=== PATIENT | female | born 1975 ===

== ENCOUNTER 2018-06-22 17:21 | Emergency (ER) | payer OTHER, SELFPAY ==
[2018-06-22] MEDS ORDERED: Iohexol 240 (50 ml) PO ONE (18:22)
--- NOTE | 2018-06-22 18:52 | ED PDOC ---
HPI: Abdomen Time Seen by Provider: 06/22/18 17:35 Chief Complaint (Nursing): Abdominal Pain Chief Complaint (Provider): Abdominal Pain History Per: Patient History/Exam Limitations: no limitations Onset/Duration Of Symptoms: Days (x21) Current Symptoms Are (Timing): Still Present Additional Complaint(s): 42 y/o with no significant PMHx presents to the ED complaining of increased abdominal distention and pain, onset three weeks ago. Patient also reports of constipation yesterday. Patient states she "feels like a baby is moving inside" but is not . Denies fever, vomiting and urinary symptoms. PMD: None Provided Past Medical History Reviewed: Historical Data, Nursing Documentation, Vital Signs Vital Signs: Last Vital Signs Temp 97.6 F 06/22/18 22:11 Pulse 78 06/22/18 22:11 Resp 20 06/22/18 22:11 BP 122/76 06/22/18 22:11 Pulse Ox 99 06/23/18 03:41 - Medical History PMH: No Chronic Diseases - Surgical History Surgical History: No Surg Hx - Family History Family History: States: Other Other Family History: Gallbladder Problems - Social History Current smoker - smoking cessation education provided: No Alcohol: None Drugs: Denies - Home Medications Home Medications: Ambulatory Orders Medication Instructions Recorded Polyethylene Glycol 3350 [Miralax] 17 g PO QAM PRN #7 pkg 06/22/18 - Allergies Allergies/Adverse Reactions: Allergies Allergy/AdvReac Type Severity Reaction Status Date / Time No Known Allergies Allergy Verified 06/22/18 17:28 Review of Systems ROS Statement: Except As Marked, All Systems Reviewed And Found Negative Constitutional: Negative for: Fever Gastrointestinal: Positive for: Abdominal Pain (and increased distention). Negative for: Vomiting Genitourinary Female: Negative for: Dysuria, Frequency, Hematuria Physical Exam - Reviewed Nursing Documentation Reviewed: Yes Vital Signs Reviewed: Yes - Physical Exam Appears: Positive for: No Acute Distress Head Exam: Positive for: ATRAUMATIC, NORMOCEPHALIC Skin: Positive for: Normal Color, Warm, Dry Eye Exam: Positive for: Normal appearance, EOMI, PERRL ENT: Positive for: Normal ENT Inspection Neck: Positive for: Normal, Painless ROM Cardiovascular/Chest: Positive for: Regular Rate, Rhythm. Negative for: Murmur Respiratory: Positive for: Normal Breath Sounds. Negative for: Respiratory Distress Gastrointestinal/Abdominal: Positive for: Normal Exam, Soft, Distended (Tympanic ) Back: Positive for: Normal Inspection Extremity: Positive for: Normal ROM. Negative for: Deformity Neurologic/Psych: Positive for: Alert, Oriented (x3). Negative for: Motor/ Sensory Deficits - Laboratory Results Result Diagrams: 06/22/18 18:50 06/22/18 18:50 - ECG O2 Sat by Pulse Oximetry: 99 (RA) Pulse Ox Interpretation: Normal Medical Decision Making Medical Decision Making: Time: 1838 Impression: Abdominal Pain Rule out: Infection, inflammation, appendicitis, diverticulitis, small bowel obstruction and fecal impaction Plan: -- CT Abd/Pelvis PO & IV Contrast -- CMP -- Lipase -- CBC with differentials -- Iohexol 50 ml PO -- Toradol 30 mg IV -- Urine C&S -- Urinalysis Time: 2099 -- Patient endorsed to Dr. Mccall, pending CT, labs and urine. Scribe Attestation: Documented by Narendra Alonzo acting as a scribe for Dr. Dulce Antony MD Provider Scribe Attestation: All medical record entries made by the Scribe were at my direction and personally dictated by me. I have reviewed the chart and agree that the record accurately reflects my personal performance of the history, physical exam, medical decision making, and the department course for this patient. I have also personally directed, reviewed, and agree with the discharge instructions and disposition. Disposition - Clinical Impression Clinical Impression: Abdominal pain, Constipation - Patient ED Disposition Is Patient to be Admitted: Transfer of Care - Disposition Referrals: [facility] [Outside] Disposition: Transfer of Care Disposition Time: 19:00 Condition: FAIR Prescriptions: Polyethylene Glycol 3350 [Miralax] 17 g PO QAM PRN #7 pkg PRN Reason: Constipation Instructions: Constipation, Adult (DC) Forms: [employer] (Ivorian) Patient Signed Over To: Brian Mccall
[2018-06-22] MEDS ORDERED: Iohexol 240 (50 ml) ONE (18:57)
[2018-06-22 19:00] LABS: BASO # 0.1 K/uL (0.0-0.2); BASO % 0.7 % (0.0-2.0); EOS # 0.1 K/uL (0.0-0.7); EOS % 1.2 % (0.0-4.0); HEMOGLOBIN 12.3 g/dL (12.0-16.0); LYMPH % 20.2 % (20.0-40.0); MEAN CELL VOLUME 90.4 fl (81.0-99.0); MEAN CORPUSCULAR HEMOGLOBIN 29.9 pg (27.0-31.0); MEAN CORPUSCULAR HGB CONC 33.1 g/dL (33.0-37.0); MEAN PLATELET VOLUME 8.3 fl (7.2-11.7); MONO # 0.7 K/uL (0.0-0.8); MONO % 6.9 % (0.0-10.0); NEUT # 7.1 K/uL (1.8-7.0); RBC 4.1 Mil/uL (3.80-5.20); RED CELL DISTRIBUTION WIDTH 13.4 % (11.5-14.5)
[2018-06-22 19:11] LABS: ALB/GLOB RATIO 1.3 (1.0-2.1); ALBUMIN 4.2 g/dL (3.5-5.0); ALT/SGPT 41 U/L (9-52); AST/SGOT 29 U/L (14-36); BLOOD UREA NITROGEN 10 mg/dl (7-17); CALCIUM 10.3 mg/dL (8.4-10.2); GFR NON-AFRICAN AMERICAN > 60; LIPASE 30 U/L (23-300)
[2018-06-22 19:22] LABS: SQUAMOUS EPITHIAL 2 /hpf (0-5); URINE BACTERIA RARE (<OCC); URINE BILIRUBIN NEGATIVE (NEGATIVE); URINE BLOOD NEGATIVE (NEGATIVE); URINE CLARITY CLEAR (Clear); URINE COLOR STRAW (YELLOW); URINE GLUCOSE (UA) NEG (Normal); URINE LEUKOCYTE ESTERASE TRACE Leu/uL (Negative); URINE PROTEIN NEGATIVE (NEGATIVE); URINE UROBILINOGEN 0.2-1.0 mg/dL (0.2-1.0)
--- NOTE | 2018-06-22 19:29 | ED PDOC ---
- Laboratory Results Result Diagrams: 06/22/18 18:50 06/22/18 18:50 - ECG O2 Sat by Pulse Oximetry: 99 (RA) Pulse Ox Interpretation: Normal Medical Decision Making Medical Decision Making: Time: 1899 -- Patient endorsed to me by Dr. Antony, pending CT, labs and urine. Time: 2129 CT ABD/PELVIS RESULTS FINDINGS: Lower thorax: No acute findings. ABDOMEN: Liver: Normal. No mass. Gallbladder and bile ducts: Normal. No calcified stones. No ductal dilation. Pancreas: Normal. No ductal dilation. Spleen: Normal. No splenomegaly. Adrenals: Normal. No mass. Kidneys and ureters: Cortical volume loss in both kidneys more prominent in the right kidney in the upper pole. Stomach and bowel: Diverticulosis of the colon without diverticulitis. Mild/ moderate fecal retention. Appendix: No evidence of appendicitis. PELVIS: Bladder: Unremarkable as visualized. Reproductive: Unremarkable as visualized. ABDOMEN and PELVIS: Intraperitoneal space: Normal. No free air. No significant fluid collection. Bones/joints: Degenerative change in the lower lumbar spine. Soft tissues: Unremarkable. Vasculature: Vascular calcifications. Lymph nodes: Normal. No enlarged lymph nodes. IMPRESSION: Diverticulosis. No diverticulitis. [id number] fecal retention Thank you for allowing us to participate in the care of your patient. Dictated and Authenticated by: Hiren Barone MD 06/22/2018 9:30 PM Eastern Time ([place] & [place]) Time: 2206 -- Patient reports an improvement in symptoms and is now stable for discharge with a diagnosis of abdominal pain and constipation. Patient given a prescription of Miralax. Scribe Attestation: Documented by Narendra Alonzo acting as a scribe for Dr. Brian Mccall MD Provider Scribe Attestation: All medical record entries made by the Scribe were at my direction and personally dictated by me. I have reviewed the chart and agree that the record accurately reflects my personal performance of the history, physical exam, medical decision making, and the department course for this patient. I have also personally directed, reviewed, and agree with the discharge instructions and disposition. Disposition - Clinical Impression Clinical Impression: Abdominal pain, Constipation - POA Present On Arrival: None - Disposition Referrals: [facility] [Outside] Disposition: Routine/Home Disposition Time: 22:07 Condition: FAIR Prescriptions: Polyethylene Glycol 3350 [Miralax] 17 g PO QAM PRN #7 pkg PRN Reason: Constipation Instructions: Constipation, Adult (DC) Forms: [address] (Lao)
[2018-06-22] MEDS ORDERED: Sodium Chloride 0.9% 50 ML IV ONE (20:19)
[2018-06-22] MEDS ORDERED: Iohexol 300 100 ML IJ ONE (20:19)
[2018-06-22 22:01] VITALS: TEMP 97.6
[2018-06-22 22:12] VITALS: BP 122/76; PULSE 78; RESP 20
[2018-06-23 03:41] VITALS: O2SAT 99
--- NOTE | 2018-06-23 10:06 | CT ---
Date of service: 06/22/2018 PROCEDURE: CT Abdomen and Pelvis with contrast HISTORY: abd pain COMPARISON: Abdomen ultrasound 07/03/2009. TECHNIQUE: Following oral and intravenous contrast administration, a CT examination of the abdomen and pelvis performed from the domes of the diaphragms to the symphysis pubis with reformatted datasets provided not only axial but also sagittal and coronal series. Contrast dose: Omnipaque 300, 95 cc Radiation dose: Total exam DLP = 736.72 mGy-cm. This CT exam was performed using one or more of the following dose reduction techniques: Automated exposure control, adjustment of the mA and/or kV according to patient size, and/or use of iterative reconstruction technique. FINDINGS: LOWER THORAX: Unremarkable. LIVER: Unremarkable. No gross lesion or ductal dilatation. GALLBLADDER AND BILE DUCTS: Unremarkable. PANCREAS: Unremarkable. No gross lesion or ductal dilatation. SPLEEN: Unremarkable. ADRENALS: Unremarkable. No mass. KIDNEYS AND URETERS: Small bilateral cortical renal defects are appreciated at the right greater than left kidney suggestive of probable chronic infarcts. Bilateral kidneys otherwise unremarkable bilaterally. VASCULATURE: Unremarkable. No aortic aneurysm. BOWEL: Unremarkable. No obstruction. No gross mural thickening. APPENDIX: Normal appendix. PERITONEUM: Unremarkable. No free fluid. No free air. LYMPH NODES: Unremarkable. No enlarged lymph nodes. BLADDER: Unremarkable. REPRODUCTIVE: Unremarkable. BONES: No acute fracture. OTHER FINDINGS: None. IMPRESSION: 1. No acute abdominal or pelvic findings. 2. Limited bilateral renal cortical infarcts suggested. No obstructive uropathy bilaterally, discrete renal parenchymal mass or urolithiasis. Concordant preliminary report from [facility], 06/22/2018.
== END 2018-06-22 22:19 | disposition home or self-care (01) ==
LOC: H.ER 17:21
DX: K59.00 Constipation, unspecified (principal); R10.9 Unspecified abdominal pain
CPT/HCPCS: 74177; 80053; 81003; 81025; 83690; 85025; 87086; 99284; J1885; Q9966; Q9967

== ENCOUNTER 2019-03-29 10:09 | Emergency (ER) | payer OTHER ==
[2019-03-29 10:28] VITALS: BP 127/76; PULSE 78; RESP 20; TEMP 98.3; O2SAT 99; BMI 31.1
--- NOTE | 2019-03-29 13:11 | ED PDOC ---
HPI: Female Pain Time Seen by Provider: 03/29/19 10:48 Chief Complaint (Nursing): Female Genitourinary Chief Complaint (Provider): Suprapubic fullness, urinary urgency History Per: Patient History/Exam Limitations: no limitations Onset/Duration Of Symptoms: Days Current Symptoms Are (Timing): Still Present Additional Complaint(s): 43 yo female wiht no medical problems presents for evaluation of suprapubic fullness and urinary urgency. PT states this has been going on for 3 days. No simialr in the past. No fever/chills. PT took pyridium which improved symptoms. PT denies back pain. PT eating and drinking normally without N/V. Past Medical History Reviewed: Historical Data, Nursing Documentation, Vital Signs Vital Signs: Last Vital Signs Temp 98.3 F 03/29/19 10:28 Pulse 78 03/29/19 10:28 Resp 20 03/29/19 10:28 BP 127/76 03/29/19 10:28 Pulse Ox 99 03/29/19 10:28 Primary Care Provider: FAMILY PROVIDER,NO - Medical History PMH: No Chronic Diseases - Surgical History Surgical History: No Surg Hx - Family History Family History: States: No Known Family Hx - Living Arrangements Living Arrangements: With Family - Social History Current smoker - smoking cessation education provided: No Alcohol: None Drugs: Denies - Home Medications Home Medications: Ambulatory Orders Medication Instructions Recorded Polyethylene Glycol 3350 [Miralax] 17 g PO QAM PRN #7 pkg 06/22/18 Ciprofloxacin [Cipro] 500 mg PO BID #10 tab 03/29/19 - Allergies Allergies/Adverse Reactions: Allergies Allergy/AdvReac Type Severity Reaction Status Date / Time No Known Allergies Allergy Verified 03/29/19 11:28 Review of Systems ROS Statement: Except As Marked, All Systems Reviewed And Found Negative Constitutional: Negative for: Fever, Chills Gastrointestinal: Positive for: Abdominal Pain, Other (Negative CVA tenderness). Negative for: Nausea, Vomiting, Constipation Genitourinary Female: Positive for: Frequency. Negative for: Dysuria, Hematuria, Vaginal Discharge, Vaginal Bleeding Physical Exam - Reviewed Nursing Documentation Reviewed: Yes Vital Signs Reviewed: Yes - Physical Exam Appears: Positive for: Well, Non-toxic, No Acute Distress Head Exam: Positive for: ATRAUMATIC, NORMAL INSPECTION, NORMOCEPHALIC Skin: Positive for: Normal Color, Warm, DRY Eye Exam: Positive for: Normal appearance ENT: Positive for: Normal ENT Inspection Neck: Positive for: Normal, Painless ROM Cardiovascular/Chest: Positive for: Regular Rate, Rhythm Respiratory: Positive for: Normal Breath Sounds. Negative for: Accessory Muscle Use, Respiratory Distress Gastrointestinal/Abdominal: Positive for: Normal Exam, Soft. Negative for: Tenderness, Distended, Guarding Back: Positive for: Normal Inspection. Negative for: L CVA Tenderness, R CVA Tenderness, Vertebral Tenderness Extremity: Positive for: Normal ROM Neurological/Psych: Positive for: Awake, Alert, Normal Tone - ECG O2 Sat by Pulse Oximetry: 99 Pulse Ox Interpretation: Normal Medical Decision Making Medical Decision Making: (+) leuks in urine. Urine culture sent. Disposition - Clinical Impression Clinical Impression: Urinary tract infection - Patient ED Disposition Is Patient to be Admitted: No Counseled Patient/Family Regarding: Diagnosis, Need For Followup, Rx Given - Disposition Disposition: Routine/Home Disposition Time: 12:57 Condition: STABLE Prescriptions: Ciprofloxacin [Cipro] 500 mg PO BID #10 tab Instructions: Urinary Tract Infections in Adults Print Language: VATICAN CITIZEN
== END 2019-03-29 12:58 | disposition home or self-care (01) ==
LOC: H.ER 10:09
DX: N39.0 Urinary tract infection, site not specified (principal)

== ENCOUNTER 2019-04-05 08:49 | Emergency (ER) | payer OTHER ==
[2019-04-05 09:29] VITALS: BMI 32.3
[2019-04-05 09:30] VITALS: TEMP 98.6; O2SAT 98
--- NOTE | 2019-04-05 10:34 | ED PDOC ---
HPI: Abdomen Time Seen by Provider: 04/05/19 09:34 Chief Complaint (Nursing): Female Genitourinary Chief Complaint (Provider): Female Genitourinary History Per: Patient History/Exam Limitations: no limitations Onset/Duration Of Symptoms: Persistent (x2 weeks), Worse Since (last night) Current Symptoms Are (Timing): Still Present Additional Complaint(s): 43 year old female presents to the emergency department with a complaint of suprapubic pain that radiates to pelvis associated with dysuria and urine frequency for the past two weeks. Patient was seen in ED on 03/29/19 for UTI then recently completed prescription for Cipro, however, symptoms returned last night. Otherwise, she denies any chest pain, shortness of breath, nausea, vomiting, diarrhea, vaginal pain or discharge. Past Medical History Reviewed: Historical Data, Nursing Documentation, Vital Signs Vital Signs: Last Vital Signs Temp 98.6 F 04/05/19 09:29 Pulse 71 04/05/19 09:29 Resp 16 04/05/19 09:29 BP 104/68 04/05/19 09:29 Pulse Ox 98 04/05/19 09:29 Primary Care Provider: Non [facility] Provider, - Medical History PMH: No Chronic Diseases - Surgical History Surgical History: No Surg Hx - Family History Family History: States: Unknown Family Hx - Home Medications Home Medications: Ambulatory Orders Medication Instructions Recorded Polyethylene Glycol 3350 [Miralax] 17 g PO QAM PRN #7 pkg 06/22/18 Ciprofloxacin [Cipro] 500 mg PO BID #10 tab 03/29/19 Nitrofurantoin Macrocrystals 100 mg PO BID #10 cap 04/05/19 [Macrobid] Phenazopyridine HCl [Pyridium] 100 mg PO BID PRN 5 Days tab 04/05/19 - Allergies Allergies/Adverse Reactions: Allergies Allergy/AdvReac Type Severity Reaction Status Date / Time No Known Allergies Allergy Verified 03/29/19 11:28 Review of Systems ROS Statement: Except As Marked, All Systems Reviewed And Found Negative Cardiovascular: Negative for: Chest Pain Respiratory: Negative for: Shortness of Breath Gastrointestinal: Positive for: Abdominal Pain (lower). Negative for: Nausea, Vomiting, Diarrhea Genitourinary Female: Positive for: Dysuria, Frequency, Pelvic Pain. Negative for: Vaginal Discharge, Vaginal Bleeding Physical Exam - Reviewed Nursing Documentation Reviewed: Yes Vital Signs Reviewed: Yes - Physical Exam Appears: Positive for: Non-toxic, No Acute Distress Head Exam: Positive for: ATRAUMATIC, NORMAL INSPECTION, NORMOCEPHALIC Skin: Positive for: Normal Color Eye Exam: Positive for: Normal appearance ENT: Positive for: Normal ENT Inspection Neck: Positive for: Normal Cardiovascular/Chest: Positive for: Regular Rate, Rhythm Respiratory: Positive for: Normal Breath Sounds. Negative for: Respiratory Distress Gastrointestinal/Abdominal: Positive for: Soft, Tenderness (suprapubic). Negative for: Other (epigastric, periumbilical, left or right tenderness) Back: Positive for: Normal Inspection. Negative for: L CVA Tenderness, R CVA Tenderness, Decreased ROM Extremity: Positive for: Normal ROM (upper/lower). Negative for: Pedal Edema, Calf Tenderness Neurological/Psych: Positive for: Awake, Alert, Normal Tone, Symmetric/Intact Strength (5/5), Oriented. Negative for: Motor/Sensory Deficits - ECG O2 Sat by Pulse Oximetry: 98 (RA) Pulse Ox Interpretation: Normal - Progress ED Course And Treament: 1101: Stable. AAOx3. Pain controlled. FU with pcp. Will tx with macrobid. Medical Decision Making Medical Decision Making: Time: 0955 Initial Plan: * Urine dipstick//culture * Motrin PO * Pyridium PO Time: 1005 --Review of chart from 03/29/19: urine culture with (-) growth. trace leukocytes in UA. Time: 1021 --UA: (+) trace leukocytes. Scribe Attestation: Documented by Tanika Ramirez, acting as a scribe for Jos Blackman MD. Provider Scribe Attestation: All medical record entries made by the Scribe were at my direction and personally dictated by me. I have reviewed the chart and agree that the record accurately reflects my personal performance of the history, physical exam, medical decision making, and the department course for this patient. I have also personally directed, reviewed, and agree with the discharge instructions and disposition. Disposition - Clinical Impression Clinical Impression: Urinary tract infection - Patient ED Disposition Is Patient to be Admitted: No Counseled Patient/Family Regarding: Studies Performed, Diagnosis, Need For Followup, Rx Given - Disposition Referrals: [facility] [Outside] - 04/06/19 Disposition: Routine/Home Disposition Time: 11:16 Condition: STABLE Additional Instructions: Return if not better in 3 days. Prescriptions: Nitrofurantoin Macrocrystals [Macrobid] 100 mg PO BID #10 cap Phenazopyridine HCl [Pyridium] 100 mg PO BID PRN 5 Days tab PRN Reason: Bladder Spasm Instructions: Urinary Tract Infections in Adults Forms: [employer] (Greenlandic) Print Language: YORUBA
[2019-04-05 11:51] VITALS: BP 110/70; PULSE 73; RESP 18
== END 2019-04-05 11:50 | disposition home or self-care (01) ==
LOC: H.ER 08:49
DX: N39.0 Urinary tract infection, site not specified (principal)